=== PATIENT | female | born 1990 | race Caucasian/White ===

== ENCOUNTER 2018-01-06 09:49 | Emergency (ER) | payer BC ==
[~2018-01-06] VITALS: Ht 160 cm; Wt 72.7 kg
[2018-01-06 09:55] VITALS: Ht 160 cm; Wt 72.7 kg
[2018-01-06] MEDS ORDERED: NEURONTIN600 MG PO (09:57)
[2018-01-06] MEDS ORDERED: LITHIUM CARBON300 MG PO (09:57)
[2018-01-06] MEDS ORDERED: REMERON15 MG PO (09:58)
[2018-01-06] MEDS ORDERED: PEPCID20 MG PO (09:58)
[2018-01-06] MEDS ORDERED: PRILOSEC2.5 MG PO (09:59)
[2018-01-06] MEDS ORDERED: TRAZODONE HCL300 MG PO (10:00)
[2018-01-06] MEDS ORDERED: CATAPRES TTS-10.1 MG TD (10:00)
[2018-01-06] MEDS ORDERED: MINIPRESS 5 MG C5 MG PO (10:01)
[2018-01-06 10:23] LABS: BASOPHILS 0.7 % (0-2); EOSINOPHILS 1.4 % (0-7); IMMATURE GRANULOCYTES 0.4 % (0-5); LYMPHOCYTES 27.8 % (15-50); MCH 29.8 pg (26.0-34.0); MCHC 31.3 g/dL (31.0-37.0); MCV 95.2 fL (80.0-100.0); MEAN PLATELET VOLUME 8.4 fL (7.4-10.4); MONOCYTES 11.2 % (2-11); NEUTROPHILS 58.5 % (40-80); PLATELET COUNT 361 10x3/uL (130-400); RBC 3.36 10x6/uL (4.00-5.40); RDW 18.1 % (11.5-14.5); WBC 5.5 10x3/uL (4.8-10.8)
[2018-01-06 10:38] LABS: ALBUMIN 3.4 g/dL (3.4-5.0); ALKALINE PHOSPHATASE 62 U/L (46-116); ALT (SGPT) 22 U/L (10-68); BILIRUBIN - TOTAL 0.15 mg/dL (0.2-1.3); CALC OSMOLALITY 274 mosm/kg (275-300); CALCIUM 8.4 mg/dL (8.5-10.1); CARBON DIOXIDE 29.1 mmol/L (21.0-32.0); CHLORIDE - SERUM 103 mmol/L (98-107); CREATININE - SERUM 0.7 mg/dL (0.6-1.3); GLUCOSE 105 mg/dL (74-106); POTASSIUM - SERUM 4.5 mmol/L (3.5-5.1); PROTEIN - SERUM 6.8 g/dL (6.4-8.2); SODIUM 138 mmol/L (136-145); UREA NITROGEN 10 mg/dL (7-18); eGFR NON AFRICAN AMERICAN > 90 mL/min (90-120)
[2018-01-06 10:42] LABS: AMYLASE - SERUM 69 U/L (25-115); LIPASE 78 U/L (73-393)
[2018-01-06 10:53] LABS: TROPONIN-I < 0.017 ng/mL (0.000-0.060)
[2018-01-06 16:23] LABS: UDS - AMPHET NEGATIVE QUAL (NEGATIVE); UDS - BARB POSITIVE QUAL (NEGATIVE); UDS - BENZO NEGATIVE QUAL (NEGATIVE); UDS - COCAINE NEGATIVE QUAL (NEGATIVE); UDS - OPIATE NEGATIVE QUAL (NEGATIVE); UDS - PCP NEGATIVE QUAL (NEGATIVE); UDS - THC NEGATIVE QUAL (NEGATIVE)
[2018-01-06 16:38] LABS: APPEARANCE CLEAR (CLEAR); BILIRUBIN NEGATIVE (NEGATIVE); COLOR YELLOW (YELLOW); GLUCOSE NEGATIVE (NEGATIVE); KETONE NEGATIVE (NEGATIVE); NITRITE NEGATIVE (NEGATIVE); PROTEIN NEGATIVE (NEGATIVE); SPECIFIC GRAVITY 1.015 (1.005-1.020); UROBILINOGEN NORMAL (NORMAL)
[2018-01-06 16:39] LABS: BACTERIA FEW /hpf (NONE SEEN); RED CELLS - URINE 0-5 /hpf (0-5); WHITE CELLS - URINE 0-5 /hpf (0-5)
[2018-01-06] MEDS ORDERED: LIBRIUM25 MG PO (17:15)
[2018-01-06 17:23] VITALS: BP 114/72
== END 2018-01-06 17:25 | disposition other institution (70) ==
LOC: D.ER 09:49
PROVIDERS: Family Medicine
DX: F10.10 Alcohol abuse, uncomplicated (principal); F10.239 Alcohol dependence with withdrawal, unspecified; G40.909 Epilepsy, unspecified, not intractable, without status epilepticus; F17.200 Nicotine dependence, unspecified, uncomplicated